=== PATIENT | male | born 1935 | race Caucasian/White ===

== ENCOUNTER 2017-08-03 14:19 | Emergency (ER) | payer OTHER ==
[2017-08-03 14:28] VITALS: TEMP 98.6
[2017-08-03 15:04] LABS: HEMATOCRIT 39.7 % (40.0-51.0); HEMOGLOBIN 13.2 g/dL (13.7-17.5); MEAN CELL HEMOGLOBIN 28.5 pg (27.9-34.1); MEAN CELL HEMOGLOBIN CONCENTR. 33.2 g/dL (32.4-36.7); MEAN CELL VOLUME 85.7 fL (81.5-99.8); RED BLOOD CELL COUNT 4.63 10^6/uL (4.40-6.38); RED CELL DISTRIBUTION WIDTH 15.7 % (11.5-15.2)
[2017-08-03 15:16] LABS: APTT 33.7 SEC (23.0-38.0); INR 1.34 (0.83-1.16); PROTIME(PATIENT) 16.6 SEC (12.0-15.0)
[2017-08-03 15:19] LABS: ANION GAP 16 mEq/L (8-16); CALCIUM 9.6 mg/dL (8.5-10.4); CARBON DIOXIDE 22 mEq/l (22-31); CHLORIDE 100 mEq/L (97-110); CREATININE 0.9 mg/dL (0.7-1.3); GLOMERULAR FILTRATION RATE > 60; GLUCOSE 96 mg/dL (70-100); POTASSIUM 3.7 mEq/L (3.5-5.2); SODIUM 138 mEq/L (134-144)
--- NOTE | 2017-08-03 15:30 | EDPHY ---
H & P Stated Complaint: fall and hit head . pt on gravel Time Seen by Provider: 08/03/17 15:18 HPI/ROS: CHIEF COMPLAINT: Confusion HISTORY OF PRESENT ILLNESS: The patient is an 82-year-old man with a history of diabetes, peripheral neuropathy, atrial fibrillation and a cardiac stent on Coumadin. He stepped backwards trying to take a picture and stepped into a hole and fell. He hit his right elbow and has an abrasion. He did not think that he hit his head but about 30 minutes later suffered some mild confusion where he cannot remember the right words to say. He did not have any focal weakness numbness or deficits. He did not have slurred speech or facial droop. He is visiting from [place]. His witnessed the episode and brought him to the hospital. She states that he hit his head in November and had similar symptoms but at that time the last for 4 hours. His symptoms are currently resolved. He has not had any recent fevers or infections. No nausea vomiting. No chest pain or palpitations or shortness of breath. No headache. No neck pain. REVIEW OF SYSTEMS: Constitutional: denies: chills, fever, recent illness, recent injury EENTM: denies: blurred vision, double vision, nose congestion Respiratory: denies: cough, shortness of breath Cardiac: denies: chest pain, irregular heart rate, lightheadedness, palpitations Gastrointestinal/Abdominal: denies: abdominal pain, diarrhea, nausea, vomiting, blood streaked stools Genitourinary: denies: dysuria, frequency, hematuria, pain Musculoskeletal: See HPI Skin: denies: lesions, rash, jaundice, bruising Neurological: denies: headache, numbness, paresthesia, tingling, dizziness, weakness Hematologic/Lymphatic: denies: blood clots, easy bleeding, easy bruising Immunologic/allergic: denies: HIV/AIDS, transplant EXAM: GENERAL: Well-appearing, well-nourished and in no acute distress. HEAD: Atraumatic, normocephalic. EYES: Pupils equal round and reactive to light, extraocular movements intact, sclera anicteric, conjunctiva are normal. ENT: TMs normal, nares patent, oropharynx clear without exudates. Moist mucous membranes. NECK: Normal range of motion, supple without lymphadenopathy or JVD. LUNGS: Breath sounds clear to auscultation bilaterally and equal. No wheezes rales or rhonchi. HEART: Regular rate and rhythm without murmurs, rubs or gallops. ABDOMEN: Soft, nontender, normoactive bowel sounds. No guarding, no rebound. No masses appreciated. BACK: No CVA tenderness, no spinal tenderness, step-offs or deformities EXTREMITIES: Right elbow abrasion. Normal range of motion and function. Normal pulses and sensation. NEUROLOGICAL: Cranial nerves II through XII grossly intact. Normal speech, normal gait. 5/5 strength, normal movement in all extremities, normal sensation PSYCH: Normal mood, normal affect. SKIN: Warm, dry, normal turgor, no visible rashes or lesions. Source: Patient Exam Limitations: No limitations - Personal History Current Tetanus/Diphtheria Vaccine: Yes - Medical/Surgical History Hx Asthma: No Hx Chronic Respiratory Disease: No Hx Diabetes: Yes Hx Cardiac Disease: Yes Hx Renal Disease: No Hx Cirrhosis: No Hx Alcoholism: No Hx HIV/AIDS: No Hx Splenectomy or Spleen Trauma: No Other PMH: SLEEP APNEA, CARDIAC STENTS,. HTN,AFIB, DM - Social History Smoking Status: Never smoked Alcohol Use: Sober Drug Use: None Constitutional: Initial Vital Signs Temperature (C) 37.0 C 08/03/17 14:23 Heart Rate 66 08/03/17 14:23 Respiratory Rate 18 08/03/17 14:23 Blood Pressure 137/71 H 08/03/17 14:23 O2 Sat (%) 96 08/03/17 14:23 O2 Delivery Mode Room Air Allergies/Adverse Reactions: No Known Allergies Allergy (Unverified 08/03/17 14:54) Home Medications: Medication Instructions Recorded Cymbalta 08/03/17 Levothyroxine 08/03/17 Omeprazole 08/03/17 Sotalol 08/03/17 Medical Decision Making - Diagnostics Imaging Results: Imaging Impressions Head CT 08/03/17 14:34 Impression: 1. Moderately advanced senescent features with cerebral atrophy and chronic microvascular ischemic gliosis. 2. Asymmetric white matter change in the left cerebellar hemisphere. It may be worthwhile to consider MR imaging (with and without contrast), for further assessment. 3. There is no acute intracranial hemorrhage. Findings were discussed with Clyde Pete MD at 15:23, on 08/03/2017. If there is further clinical concern regarding the patient's symptoms, MR imaging is suggested, if not otherwise contraindicated. Brain MRI 08/03/17 16:12 Impression: Moderately advanced senescent features, with no acute intracranial abnormality. Findings were discussed with ARTUR KAUFMAN MD at 18:55, on 08/03/2017. ED Course/Re-evaluation: We discussed the CT results. The patient has some imbalance symptoms that he has been told or from his neuropathy. They are not acute or changed today. He did have some word-finding difficulties that were new today. They agreed with MRI. We discussed the MRI results. The patient and family are reassured. We discussed concussion precautions and indications for returning follow-up. Patient and are happy with this. I see recommended that he increase his Coumadin dose to 5 mg 3 times per week rather than 2 times per week. Differential Diagnosis: Partial list of the Differential diagnosis considered include but were not limited to; mechanical fall, head injury, concussion and although unlikely based on the history and physical exam, I also considered intracranial hemorrhage, fracture, neck injury, CVA. I discussed these differential diagnoses and the plan with the patient as well as the usual and expected course. The patient understands that the diagnosis is provisional and that in medicine we are not always correct and that further workup is often warranted. Usual and customary warnings were given. All of the patient's questions were answered. The patient was instructed to return to the emergency department should the symptoms at all worsen or return, otherwise to followup with the physician as we discussed. - Data Points Laboratory Results: Laboratory Results 08/03/17 14:37 08/03/17 14:37 08/03/17 08/03/17 08/03/17 14:37 14:37 14:37 WBC 15.21 10^3/uL H 10^3/uL (3.80-9.50) RBC 4.63 10^6/uL 10^6/uL (4.40-6.38) Hgb 13.2 g/dL L g/dL (13.7-17.5) Hct 39.7 % L % (40.0-51.0) MCV 85.7 fL fL (81.5-99.8) MCH 28.5 pg pg (27.9-34.1) MCHC 33.2 g/dL g/dL (32.4-36.7) RDW 15.7 % H % (11.5-15.2) Plt Count 282 10^3/uL 10^3/uL (150-400) PT 16.6 SEC H SEC (12.0-15.0) INR 1.34 H (0.83-1.16) APTT 33.7 SEC SEC (23.0-38.0) Sodium 138 mEq/L mEq/L (134-144) Potassium 3.7 mEq/L mEq/L (3.5-5.2) Chloride 100 mEq/L mEq/L (97-110) Carbon Dioxide 22 mEq/l mEq/l (22-31) Anion Gap 16 mEq/L mEq/L (8-16) BUN 18 mg/dL mg/dL (7-23) Creatinine 0.9 mg/dL mg/dL (0.7-1.3) Estimated GFR > 60 Glucose 96 mg/dL mg/dL (70-100) Calcium 9.6 mg/dL mg/dL (8.5-10.4) Departure - Departure Disposition: Home, Routine, Self-Care Clinical Impression: Concussion Qualifiers: Encounter type: initial encounter Loss of consciousness presence/duration: without LOC Qualified Code(s): S06.0X0A - Concussion without loss of consciousness, initial encounter Condition: Fair Instructions: Concussion (ED) Referrals: M[facility] CURTIS [Other] - As per Instructions
[2017-08-03 19:43] VITALS: BP 145/71; PULSE 67; RESP 16; O2SAT 98
== END 2017-08-03 19:41 | disposition home or self-care (01) ==
DX: S06.0X0A Concussion without loss of consciousness, initial encounter (principal); W18.39XA Other fall on same level, initial encounter; Y99.8 Other external cause status; Y93.89 Activity, other specified; E11.9 Type 2 diabetes mellitus without complications; I10 Essential (primary) hypertension; Z95.5 Presence of coronary angioplasty implant and graft

== ENCOUNTER 2017-08-06 12:48 | Emergency (ER) | payer OTHER ==
[2017-08-06 12:54] VITALS: RESP 18; TEMP 97.7
--- NOTE | 2017-08-06 14:55 | EDPHY ---
H & P Stated Complaint: R shoulder pain after fall (seen here); wants cortisone inj in joint HPI/ROS: Chief complaint: Right shoulder injury History of present illness: This is an 82-year-old male who presents to the emergency department for right shoulder injury. Patient reports 3 days ago he tripped and fell injuring himself. He was seen in this emergency department that time for head injury. States initially his shoulder felt well after the fall but shortly thereafter approximately 1 day later started to become more sore. It is becoming painful. It hurts to move. He denies associated signs or symptoms including no open wounds, no abnormal coolness in no paresthesias that are new to the right upper extremity. No other concerns at this time. - Personal History Current Tetanus Diphtheria and Acellular Pertussis (TDAP): Yes - Medical/Surgical History Hx Asthma: No Hx Chronic Respiratory Disease: No Hx Diabetes: Yes Hx Cardiac Disease: Yes Hx Renal Disease: No Hx Cirrhosis: No Hx Alcoholism: No Hx HIV/AIDS: No Hx Splenectomy or Spleen Trauma: No Other PMH: SLEEP APNEA, CARDIAC STENTS,. HTN,AFIB, DM, - Social History Smoking Status: Never smoked - Physical Exam Exam: General: Alert, nontoxic Skin: No lesions consistent with trauma to the right shoulder Musculoskeletal: Right shoulder is nontender. He has pain in all barraza when moving actively. Increased range of motion with passive ranging. Rest of the right upper extremity is unremarkable. Vascular: Radial pulses 2+. Neurologic: Sensation intact in the right upper extremity. Constitutional: Initial Vital Signs Temperature (C) 36.5 C 08/06/17 12:50 Heart Rate 61 08/06/17 12:50 Respiratory Rate 18 08/06/17 12:50 Blood Pressure 146/69 H 08/06/17 12:50 O2 Sat (%) 95 08/06/17 12:50 O2 Delivery Mode Room Air Allergies/Adverse Reactions: No Known Allergies Allergy (Verified 08/06/17 12:49) Home Medications: Medication Instructions Recorded Cymbalta 08/03/17 Levothyroxine 08/03/17 Omeprazole 08/03/17 Sotalol 08/03/17 Hydrocodone/APAP 5/325 [[place] 1 tab PO TID #15 tab 08/06/17 5/325 (*)] Medical Decision Making - Diagnostics Imaging Results: Imaging Impressions Shoulder X-Ray 08/06/17 12:55 Impression: Degenerative changes. Imaging: I viewed and interpreted images myself ED Course/Re-evaluation: Patient seen under the supervision of my primary supervising physician Dr. Alyson Madera. Patient presents for a right shoulder injury. The right upper extremity is neurovascularly intact. X-rays negative. This does appear to be a traumatic injury secondary to a fall 3 days ago. He is requesting pain management. We have discussed multiple options, he cannot take NSAIDs, he does state [place] works well for him, he has used it multiple times in the past. I will prescribe a short course that he is to use sparingly. He is asking for a steroid injection, I discussed we cannot do this through the emergency room. He is given referral information to a local orthopedic for further evaluation and care. Return precautions are given. Patient voiced understanding and agreement with plan. Differential Diagnosis: Included but not limited to contusion, sprain, strain, labral injury, fracture, joint dislocation Departure - Departure Disposition: Home, Routine, Self-Care Clinical Impression: Shoulder pain Qualifiers: Chronicity: acute Laterality: right Qualified Code(s): M25.511 - Pain in right shoulder Condition: Good Instructions: Shoulder Pain (ED) Additional Instructions: Follow-up with orthopedics for continued evaluation and care You have been prescribed [place] for pain. [place] contains Tylenol, do not take extra Tylenol/acetaminophen/Apap with it. It is sedating. Use a stool softener with it. If symptoms worsen or new symptoms develop return to the emergency room for recheck Referrals: M[facility] CURTIS [Other] - As per Instructions Hunter Chamberlain MD [Medical Doctor] - As per Instructions Stand Alone Forms: Airline Excuse Prescriptions: Hydrocodone/APAP 5/325 [[place] 5/325 (*)] 1 tab PO TID #15 tab
[2017-08-06 15:41] VITALS: BP 149/68; PULSE 59; O2SAT 96
== END 2017-08-06 15:40 | disposition home or self-care (01) ==
DX: M25.511 Pain in right shoulder (principal); E11.9 Type 2 diabetes mellitus without complications; I10 Essential (primary) hypertension